=== PATIENT | female | born 1955 | race Caucasian/White ===

== ENCOUNTER 2016-11-14 13:35 | Inpatient (IN) | payer OTHER ==
--- NOTE | ~2016-11-14 | EKG ---
PATIENT: AYAN MAYER UNIT #: [id number] Ventricular Rate: 67 BPM Atrial Rate: 67 BPM P-R Interval: 170 ms QRS Duration: 86 ms Q-T Interval: 446 ms QTC Calculation(Bezet): 471 ms P [place]: 72 degrees Calculated R [place]: 59 degrees Calculated T [place]: 57 degrees Diagnosis Line: Normal sinus rhythm Diagnosis Line: Normal ECG Diagnosis Line: When compared with ECG of 15-NOV-2016 05:28, Diagnosis Line: (unconfirmed) Diagnosis Line: QT has shortened Diagnosis Line: Confirmed by JOVANNY MA MD ([id number]) on 11/15/2016 Diagnosis Line: 5:33:44 PM INTERPRETING MD: FRANCESCA YU
--- NOTE | ~2016-11-14 | DS ---
Unit #: [id number] #: [id number] Patient: AYAN MAYER [id number] [facility]. [place], [place] [address] [id number] I MR#: [id number] NAME: AYAN MAYER. ROOM: 557 Age: 61 Sex: F Admission Date: 11/14/2016 : 1955 Discharge Date: 11/16/2016 Attending Physician: Winston Perkins M.D. Primary Care Physician: Nancy Garcia A.P.R.N. DISCHARGE SUMMARY DISCHARGE DIAGNOSES 1. Acute inferior wall non ST elevation myocardial infarction. 2. Status post cardiac catheterization 11/15/[address] at [facility] that reveals the following results. a. Left main normal. b. Left anterior descending artery with 50% stenosis distal to the first septal sawsmith. First diagonal branch with 80% stenosis before the bifurcation. c. Circumflex artery shows 80% stenosis at the origin of the posterior marginal branch. d. Right coronary artery is a large caliber dominant vessel with 99.9% before the bifurcation of the posterior descending artery and posterior left ventricular branches. e. Injection fraction of 50% with moderate to severe hypokinesis of the inferior basal wall. There is 2+ mitral regurgitation into a dilated left atrium. f. Status post angioplasty with drug eluting stent to the distal right coronary artery. Post percutaneous coronary intervention, there was 50% stenosis of origin of the posterior descending artery branch that was caught in stent retirement. 3. Hypertension. 4. Cocaine abuse. 5. ETOH abuse. 6. Mitral regurgitation. DISCHARGE MEDICATIONS 1. Trazodone 50 mg q.h.s. p.r.n. 2. Aspirin 81 mg daily. 3. Brilinta 90 mg b.i.d. 4. Omeprazole 20 mg daily. 5. Potassium chloride 10 mEq daily. 6. Acyclovir 400 mg daily p.r.n. 7. Norvasc 10 mg daily. 8. Metoprolol tartrate 25 mg b.i.d. 9. Hydrochlorothiazide 25 mg daily. 10. Lipitor 80 mg q.h.s. 11. Lisinopril 20 mg q.h.s. 12. Cyclobenzaprine 10 mg b.i.d. p.r.n. 13. Levothyroxine 0.25 mg daily. 14. Nitroglycerin 0.4 mg sublingual q.5 minutes x3 p.r.n. chest pain. HOSPITAL COURSE This is a 61-year-old white female who presented to the emergency department for evaluation of chest pain. Please see details in the HPI. Unit #: [id number] #: [id number] Patient: AYAN MAYER She was ruled in for an acute myocardial infarction where her troponin peaked at 0.68. She had no acute electrocardiogram changes. Cardiac catheterization was recommended, for which the patient was agreeable. She was started on aspirin, Lovenox, and beta-sandi. KATE inhibitor was also started. Lipid profile showed good control of cholesterol levels but because of acute AL, the patient was started on high intensity statin with Lipitor 80 mg q.h.s. Cardiac catheterization findings showed the culprit vessel to be the distal right coronary artery, which was 99.9% occluded. She had moderate disease in the first diagonal branch of the LAD and the posterior marginal branch of the circumflex artery. She underwent successful angioplasty with drug-eluting stent placement using a 3.5 x 16 mm Synergy drug-eluting stent into the distal right coronary artery. There was 50% residual stenosis after the ostium of the PDA branch that was caught in stent retirement. There was an attempt to advance the wire through the struts of the stent but was unable to advance the wire across the stent struts. The attempt to dilate the PDA was aborted. The 80% stenosis to the origin of the posterior marginal branch of the circumflex artery and 80% stenosis of the diagonal branch of the LAD will be dilated at a later date. She was bolused with Brilinta, in addition to aspirin in the cleaner laboratory equipment. She will be started on a daily regimen, because the Brilinta for the patient is $2.00, which is affordable. The following day the patient's MB index was 8.4. She had no acute ischemic changes. She is ambulated without chest pain or shortness of breath. She complained of constipation but no other symptoms. She is stable for discharge today. ASSESSMENT VITAL SIGNS: Blood pressure 93/60, heart rate 68, temperature 97.6. CHEST: Clear to auscultation. HEART: S1 and S2. Regular rate and rhythm. No murmurs, rubs, or clicks. ABDOMEN: Soft, nontender. Bowel sounds are present. EXTREMITIES: Without leg edema. Right radial 4+ pulse. No hematoma or bruising. DIAGNOSTIC STUDIES LABORATORY STUDIES: Hemoglobin 12.2, hematocrit 35.6, platelet count 216, white count 5.0. Sodium 138, potassium 4.5, BUN 12, creatinine 0.6, glucose 91. MB index 8.4. CARDIOLOGY STUDIES: Resting electrocardiogram - normal sinus rhythm with a rate of 64 BPM with QTC prolongation 573 msec. DISCHARGE INSTRUCTIONS 1. The patient will be discharged home today. 2. Followup with Dr. Perkins in the office in two weeks. She would need a 2D echocardiogram to evaluate left ventricular systolic function and for valvular heart disease. 3. Cardiac catheterization showed moderate mitral regurgitation. 4. Repeat electrocardiogram in the office to evaluate QTC. QTC was prolonged on discharge EKG at 573 msec. 5. Norvasc has been discontinued. The patient will continue on beta-sandi KATE inhibitor statin, aspirin and Brilinta. Dictated by... John Murphy A.P.R.N. for Winston Perkins M.D. Unit #: [id number] #: [id number] Patient: AYAN MAYER JAYLEN/ts TD: 11/18/2016 08:44 JOB #: [id number] CC: [facility] [place] [facility] DISCHARGE SUMMARY X John Murphy APRN X DISCHARGE SUMMARY
--- NOTE | ~2016-11-14 | CR72 ---
[facility] A Service of [facility] RADIOLOGY TEXT RESULTS PATIENT: AYAN MAYER LOCATION: C5 557-01 : 56 UNIT #: [id number] AGE: [address]: Winston Perkins MD SEX: F ORDER DR: [id number] [facility] [address]. [place], [place] [address] [id number] MR#: [id number] Acc #: [id number] NAME: AYAN MAYER : 1955 SEX: F STUDY DATE/TIME: 11/14/2016 13:50 UNIT: ERIKA ROOM: STUDY DESCRIPTION: CR Chest Single View Portable Attending Physician: Gabriel Pierce M.D. Ordering Physician: Gabriel Pierce M.D. Primary Care Physician: Nancy Garcia A.P.R.N. MEDICAL IMAGING REPORT This report is preliminary unless electronic signature is present EXAM Chest, portable, 11/14/2016, 1350 hours. CLINICAL HISTORY 7-year-old complaining of midsternal chest pain for 2 days. History of uterine cancer. COMPARISON 12/28/2015 FINDINGS Portable upright chest demonstrates artifact which I believe is external to the patient in the supraclavicular regions, likely related to clothing. The cardiac, mediastinal, and hilar contours are normal. The lungs are clear and there are no effusions. IMPRESSION No acute cardiopulmonary findings. There is clothing artifact in the supraclavicular regions and in the neck. Dictated by... Nannette Rivers M.D. THIS IS AN ELECTRONICALLY VERIFIED REPORT Nannette Rivers M.D. at 11/15/2016 7:46 AM CHRISTOPHER/gerri TD: 11/14/2016 16:09 JOB #: [id number] MEDICAL IMAGING REPORT [facility] A Service [facility] RADIOLOGY TEXT RESULTS PATIENT: AYAN MAYER LOCATION: [facility] 557-01 : 57 UNIT #: [id number] AGE: [address]: Winston Perkins MD SEX: F ORDER DR: JOSE
--- NOTE | ~2016-11-14 | EKG ---
PATIENT: AYAN MAYER UNIT #: [id number] Ventricular Rate: 106 BPM Atrial Rate: 106 BPM P-R Interval: 162 ms QRS Duration: 90 ms Q-T Interval: 376 ms QTC Calculation(Bezet): 499 ms P [place]: 67 degrees Calculated R [place]: 65 degrees Calculated T [place]: 81 degrees Diagnosis Line: Sinus tachycardia Diagnosis Line: Nonspecific T wave abnormality Diagnosis Line: Abnormal ECG Diagnosis Line: When compared with ECG of 03-JUL-2014 21:24, Diagnosis Line: T wave inversion no longer evident in Inferior Diagnosis Line: leads Diagnosis Line: Nonspecific T wave abnormality now evident in Diagnosis Line: Anterolateral leads Diagnosis Line: Confirmed by JOVANNY MA MD ([id number]) on 11/15/2016 Diagnosis Line: 5:10:08 PM INTERPRETING MD: FRANCESCA YU
--- NOTE | ~2016-11-14 | EKG ---
PATIENT: AYAN MAYER UNIT #: [id number] Ventricular Rate: 97 BPM Atrial Rate: 97 BPM P-R Interval: 176 ms QRS Duration: 94 ms Q-T Interval: 376 ms QTC Calculation(Bezet): 477 ms P [place]: 67 degrees Calculated R [place]: 75 degrees Calculated T [place]: 107 degrees Diagnosis Line: Normal sinus rhythm Diagnosis Line: Nonspecific ST and T wave abnormality Diagnosis Line: Prolonged QT Diagnosis Line: Abnormal ECG Diagnosis Line: When compared with ECG of 14-NOV-2016 13:03, Diagnosis Line: (unconfirmed) Diagnosis Line: No significant change was found Diagnosis Line: Confirmed by JOVANNY MA MD ([id number]) on 11/15/2016 Diagnosis Line: 5:15:52 PM INTERPRETING MD: FRANCESCA YU
--- NOTE | ~2016-11-14 | EKG ---
PATIENT: AYAN MAYER UNIT #: [id number] Ventricular Rate: 64 BPM Atrial Rate: 64 BPM P-R Interval: 168 ms QRS Duration: 90 ms Q-T Interval: 556 ms QTC Calculation(Bezet): 573 ms P [place]: 58 degrees Calculated R [place]: 49 degrees Calculated T [place]: 73 degrees Diagnosis Line: Normal sinus rhythm Diagnosis Line: Prolonged QT Diagnosis Line: Abnormal ECG Diagnosis Line: When compared with ECG of 14-NOV-2016 18:20, Diagnosis Line: (unconfirmed) Diagnosis Line: Vent. rate has decreased BY 33 BPM Diagnosis Line: ST no longer depressed in Anterolateral leads Diagnosis Line: Nonspecific T wave abnormality, improved in Diagnosis Line: Anterolateral leads Diagnosis Line: QT has lengthened Diagnosis Line: Confirmed by JOVANNY MA MD ([id number]) on 11/15/2016 Diagnosis Line: 5:24:52 PM INTERPRETING MD: FRANCESCA YU
--- NOTE | ~2016-11-14 | EKG ---
PATIENT: AYAN MAYER UNIT #: [id number] Ventricular Rate: 63 BPM Atrial Rate: 63 BPM P-R Interval: 174 ms QRS Duration: 86 ms Q-T Interval: 460 ms QTC Calculation(Bezet): 470 ms P [place]: 64 degrees Calculated R [place]: 57 degrees Calculated T [place]: 30 degrees Diagnosis Line: Normal sinus rhythm Diagnosis Line: Normal ECG Diagnosis Line: When compared with ECG of 15-NOV-2016 14:20, Diagnosis Line: No significant change was found Diagnosis Line: Confirmed by JARRED NORTON MD ([id number]) on Diagnosis Line: 11/17/2016 10:37:52 PM INTERPRETING MD: ZACH
--- NOTE | ~2016-11-14 | HP ---
Unit #: [id number] #: [id number] Patient: AYAN MAYER [id number] [address] [place], [place] [address] [id number] I MR#: [id number] NAME: AYAN MAYER. ROOM: 557 Age: 61 Sex: F Admission Date: 11/14/2016 : 1955 Attending Physician: Winston Perkins M.D. Primary Care Physician: Nancy Garcia A.P.R.N. HISTORY AND PHYSICAL HISTORY OF PRESENT ILLNESS This is a 61-year-old white female, who presented to the emergency room with a complaint of left anterior sharp intermittent chest pain with radiation to her left arm and left scapula associated with shortness of breath. She woke up from sleep yesterday morning with chest pain. She had episodes all day yesterday that mostly occurred with exertion and was relieved with rest. She walked approximately two blocks with her and the chest pain was ongoing. 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 She has a history of cocaine use and used cocaine two days ago. Because of chest pain, she came to the emergency room for evaluation where she was found to have no troponin elevation or electrocardiogram changes to suggest an acute event. There was no relief of chest pain after nitroglycerin in the emergency room. She has had prior cardiac testing with exercise Cardiolite stress test in 2008 which was normal. She is known to have hypertension, remote history of nicotine abuse, and family history of premature coronary artery disease as risk factors for ischemic heart disease. She states she is reasonably active and has not had any chest pain until yesterday. PAST MEDICAL HISTORY 1. Exercise Cardiolite stress test, January 09, 2009, shows ejection fraction 82% with no ischemia. 2. A 2D echocardiogram, July 05, 2014, shows an ejection fraction of 60% with mild mitral regurgitation and mild tricuspid regurgitation. 3. Hypertension. 4. Hypothyroidism. 5. ETOH abuse. 6. Hepatitis C. 7. Vasovagal syncope. 8. Cocaine abuse. 9. Former smoker. PAST SURGICAL HISTORY Hysterectomy. SOCIAL HISTORY The patient is . 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 She quit smoking more than 10 years ago. Drinks on a daily basis, apparently heavily. Reports occasional cocaine use. FAMILY HISTORY Father had open heart surgery but from cancer in his 70s. ALLERGIES Unit #: [id number] #: [id number] Patient: AYAN MAYER No known drug allergies. MEDICATIONS Listed medications: 1. Amlodipine. 2. Levothyroxine. 3. Hydrochlorothiazide. 4. Potassium chloride. 5. Trazodone. 6. Flexeril. REVIEW OF SYSTEMS CONSTITUTIONAL: Negative for fever or chills. Reports no weight gain or weight loss. HEENT: No headache, hearing or visual changes, or difficulty with swallowing. No dizziness. CARDIOVASCULAR: Has chest pain described in the HPI. Denies palpitations. No paroxysmal nocturnal dyspnea or orthopnea. Denies syncope or near syncope. RESPIRATORY: Positive for dyspnea that accompanies chest pain. No cough or hemoptysis. GASTROINTESTINAL: Negative for nausea, vomiting, or abdominal pain discomfort. EXTREMITIES: Negative for lower extremity edema. PHYSICAL EXAMINATION VITAL SIGNS: Blood pressure 143/82, heart rate 98, temperature 98, BMI 25. GENERAL: This is a 61-year-old middle-aged white female who is in no acute respiratory distress. NEUROLOGIC: She is awake, alert, and oriented without focal weaknesses. NECK: Trachea is midline. No thyromegaly or lymphadenopathy. No jugular venous distention. HEART: S1, S2. Heart sounds are normal. No murmurs. No rubs. No clicks. Regular rate and rhythm. LUNGS: Clear to auscultation. ABDOMEN: Soft, nontender. Bowel sounds are present. EXTREMITIES: Without leg edema. SKIN: Warm and dry. DIAGNOSTIC STUDIES LABORATORY: Hemoglobin 13.8, hematocrit 40.2, platelet count 313,000, white count 7. Sodium 138, potassium 3.5, BUN 9, creatinine 0.7, glucose 105. Troponin less than 0.05. Urine drug screen positive for cocaine and TCA. IMAGING: Chest x-ray shows no active disease. CARDIOVASCULAR: EKG: Sinus tachycardia, rate of 106 beats per minute with nonspecific ST wave abnormality. IMPRESSION 1. New-onset exertional angina. 2. Hypertension, controlled. 3. History of vasovagal syncope. 4. Daily ETOH use. 5. Cocaine abuse. Unit #: [id number] #: [id number] Patient: AYAN MAYER PLAN 1. The patient has risk factors for ischemic heart disease that include hypertension, remote history of nicotine abuse, and family history of premature coronary artery disease. Because of exertional angina and risk factors, will recommend cardiac catheterization to evaluate coronary anatomy. This has been discussed with the patient and family and they are agreeable. 2. Will start the patient on nitrates and beta blockers. 3. Continue aspirin. 4. Lipid profile will be obtained. 5. Encouraged the patient to discontinue cocaine use. 6. Consider decreasing her alcohol consumption. Dictated by Kishore BaldwinPErin for Benita Scherer TD: 11/15/2016 16:06 JOB #: [id number] HISTORY AND PHYSICAL X John Murphy APRN X HISTORY AND PHYSICAL
[~2016-11-14 13:35] MED LIST: AMLODIPINE BESYL5 MG PO; B; CALCIUM + D 6001 TA1 PO; CYANOCOBALAM1000 MCG PO; KCL PO; LISINOPRIL PO; MOTRIN600 MG PO; NAPROSYN500 MG PO; PROBIOTIC1 EAC1 PO; SENNA8.6 M1 PO; ST. JOSEPH ASPI81 M2 PO; VITAMIN B650 M1 PO
[2016-11-14 14:24] LABS: BASOPHIL# 0.1 X10e3 (0-0.3); BASOPHIL% 0.8 % (0-2.5); DIFF IND NO; EOSINOPHIL# 0.2 X10e3 (0-0.7); EOSINOPHIL% 2.6 % (0.0-7.0); HEMATOCRIT 40.2 % (35.0-45.0); HEMOGLOBIN 13.8 gm/dL (12.0-16.0); LYMPHOCYTE# 2.1 X10e3 (1.0-3.5); LYMPHOCYTE% 30.3 % (17.0-45.0); MEAN CELL VOLUME 88.3 FL (83-96); MEAN CORPUSCULAR HEMOGLOBIN 30.3 PG (28-34); MEAN CORPUSCULAR HGB CONC 34.3 g/dL (30-36); MEAN PLATELET VOLUME 7.6 FL (6.5-11.5); MONOCYTE# 0.5 X10e3 (0-1.0); MONOCYTE% 7.2 % (3.0-12.0); NEUTROPHIL# 4.2 X10e3 (1.5-7.1); NEUTROPHIL% 59.1 % (40-75); PLATELET COUNT 313 X10e3 (140-420); RED BLOOD COUNT 4.55 X10e (3.90-5.30); RED CELL DISTRIBUTION WIDTH 12.7 % (11.0-15.5)
[2016-11-14 14:34] LABS: POC - CKMB 1.4 ng/mL (0.0-7.9); POC - TROPONIN <0.05 ng/mL (<=0.05)
[2016-11-14 14:54] LABS: ALBUMIN SERUM 4.7 g/dL (3.5-5.0); ALKALINE PHOSPHATASE 66 U/L (32-92); ALT (SGPT) 28 U/L (10-40); AST (SGOT) 29 U/L (10-42); BILIRUBIN,TOTAL 0.3 mg/dL (0.2-2.0); BLOOD UREA NITROGEN 9 mg/dL (9-23); BUN/CREATININE RATIO 12.85; CALCIUM SERUM 9.5 mg/dL (8.4-10.2); CARBON DIOXIDE 24 mmol/L (22-31); CHLORIDE 101 mmol/L (100-111); CREATININE SERUM 0.7 mg/dL (0.6-1.4); GLOM FILT RATE Estimated ABOVE60 mL/min (>60); GLUCOSE FASTING 105 mg/dL (70-110); POTASSIUM 3.5 mmol/L (3.5-5.1); PROTEIN TOTAL SERUM 8.7 g/dL (6.0-8.3); SODIUM 138 mmol/L (135-145)
[2016-11-14 14:56] LABS: BILIRUBIN, DIRECT <0.1 mg/dL (0.0-0.2); BILIRUBIN,INDIRECT 0.2 mg/dL (0.0-0.9)
[2016-11-14 16:17] LABS: POC - CKMB 1.3 ng/mL (0.0-7.9); POC - TROPONIN <0.05 ng/mL (<=0.05)
[2016-11-14 16:34] LABS: URINE SOURCE CLEAN CATCH
[2016-11-14 16:46] LABS: URINE APPEARANCE CLEAR; URINE BILIRUBIN NEG (NEG); URINE BLOOD NEG (NEG); URINE COLOR YELLOW; URINE GLUCOSE NEG (NEG); URINE KETONE NEG (NEG); URINE LEUKOCYTE ESTERASE NEG (NEG); URINE NITRATE NEG (NEG); URINE PROTEIN NEG (NEG); URINE SPECIFIC GRAVITY 1.016 (1.003-1.035); URINE UROBILINOGEN 0.2 MG/DL (NEG)
[2016-11-14 16:53] LABS: CULTURE INDICATED? NO
[2016-11-14 17:17] LABS: AMPHETAMINE NEG (NEG); BARBITURATES NEG (NEG); BENZODIAZEPINES NEG (NEG); COCAINE POS (NEG); MARIJUANA NEG (NEG); OPIATES NEG (NEG); TRICYCLIC ANTIDEPRESSANTS POS (NEG); U METHADONE NEG (NEG)
[2016-11-14] MEDS ORDERED: HYDROCHLOROTHIA25 MG PO (18:46)
[2016-11-14] MEDS ORDERED: NORVASC10 MG PO (18:46)
[2016-11-14] MEDS ORDERED: SYNTHROID25 MCG PO (18:46)
[2016-11-14] MEDS ORDERED: FLEXERIL10 MG PO (18:47)
[2016-11-14] MEDS ORDERED: TRAZODONE PO (18:47)
[2016-11-14] MEDS ORDERED: ACYCLOVIR400 MG PO (18:47)
[2016-11-14] MEDS ORDERED: OMEPRAZOLE20 M2 PO (18:48)
[2016-11-14] MEDS ORDERED: KLOR-CON PO (18:48)
[2016-11-14 22:15] LABS: %MB 11.1 % (0.0-4.0); MB 8.3 ng/ml
[2016-11-15 03:35] LABS: BASOPHIL% 0.6 % (0-2.5); EOSINOPHIL# 0.2 X10e3 (0-0.7); EOSINOPHIL% 2.7 % (0.0-7.0); HEMATOCRIT 35.9 % (35.0-45.0); HEMOGLOBIN 12.4 gm/dL (12.0-16.0); LYMPHOCYTE# 1.7 X10e3 (1.0-3.5); MEAN CELL VOLUME 87.6 FL (83-96); MEAN CORPUSCULAR HEMOGLOBIN 30.3 PG (28-34); MEAN CORPUSCULAR HGB CONC 34.6 g/dL (30-36); MEAN PLATELET VOLUME 7.9 FL (6.5-11.5); MONOCYTE# 0.7 X10e3 (0-1.0); MONOCYTE% 10.2 % (3.0-12.0); NEUTROPHIL# 4.1 X10e3 (1.5-7.1); NEUTROPHIL% 61.5 % (40-75); PLATELET COUNT 285 X10e3 (140-420); RED CELL DISTRIBUTION WIDTH 12.6 % (11.0-15.5); WHITE BLOOD COUNT 6.6 X10e3 (4.0-10.5)
[2016-11-15 03:39] LABS: DIFF IND NO
[2016-11-15 03:50] LABS: PARTIAL THROMBOPLASTIN TIME 28.6 SECONDS (23.5-31.3); PROTHROMBIN TIME (PATIENT) 10.4 SECONDS (9.6-11.5)
[2016-11-15 04:02] LABS: BLOOD UREA NITROGEN 8 mg/dL (9-23); BUN/CREATININE RATIO 13.33; CALCIUM SERUM 8.8 mg/dL (8.4-10.2); CARBON DIOXIDE 25 mmol/L (22-31); CHLORIDE 100 mmol/L (100-111); CREATININE SERUM 0.6 mg/dL (0.6-1.4); GLOM FILT RATE Estimated ABOVE60 mL/min (>60); GLUCOSE FASTING 122 mg/dL (70-110); MAGNESIUM 1.5 mg/dL (1.6-3.0); POTASSIUM 3.6 mmol/L (3.5-5.1); SODIUM 132 mmol/L (135-145)
[2016-11-15 04:39] LABS: %MB 13.5 % (0.0-4.0); CHOLESTEROL 143 mg/dL (0-200); HDL CHOLESTEROL 68 mg/dL (35-95); LDL CHOLESTEROL 44 mg/dL (-130); LDL/HDL RATIO 1 RATIO (0-4); MB 13.8 ng/ml; TRIGLYCERIDES 156 mg/dL (10-160)
[2016-11-15 18:00] LABS: ANGIO %MB 10.9 % (0.0-4.0); ANGIO MB 10.8 ng/ml
[2016-11-16 02:24] LABS: ANGIO %MB 8.4 % (0.0-4.0); ANGIO MB 6.2 ng/ml
[2016-11-16 06:22] LABS: HEMATOCRIT 35.6 % (35.0-45.0); HEMOGLOBIN 12.2 gm/dL (12.0-16.0); MEAN CELL VOLUME 88.2 FL (83-96); MEAN CORPUSCULAR HEMOGLOBIN 30.3 PG (28-34); MEAN CORPUSCULAR HGB CONC 34.3 g/dL (30-36); MEAN PLATELET VOLUME 8.2 FL (6.5-11.5); RED BLOOD COUNT 4.04 X10e (3.90-5.30); RED CELL DISTRIBUTION WIDTH 12.6 % (11.0-15.5)
[2016-11-16 07:04] LABS: BLOOD UREA NITROGEN 12 mg/dL (9-23); CALCIUM SERUM 8.9 mg/dL (8.4-10.2); CARBON DIOXIDE 27 mmol/L (22-31); CHLORIDE 104 mmol/L (100-111); CHOLESTEROL 110 mg/dL (0-200); CREATININE SERUM 0.6 mg/dL (0.6-1.4); GLOM FILT RATE Estimated ABOVE60 mL/min (>60); GLUCOSE FASTING 91 mg/dL (70-110); HDL CHOLESTEROL 58 mg/dL (35-95); LDL CHOLESTEROL 38 mg/dL (-130); LDL/HDL RATIO 1 RATIO (0-4); MAGNESIUM 1.9 mg/dL (1.6-3.0); POTASSIUM 4.5 mmol/L (3.5-5.1); SODIUM 139 mmol/L (135-145); TRIGLYCERIDES 68 mg/dL (10-160)
[2016-11-16] MEDS ORDERED: CHEWABLE ASPIRI81 MG PO (10:21)
[2016-11-16] MEDS ORDERED: BRILINTA90 MG PO (10:21)
[2016-11-16] MEDS ORDERED: METOPROLOL TAR25 MG PO (10:22)
[2016-11-16] MEDS ORDERED: LIPITOR80 MG PO (10:23)
[2016-11-16] MEDS ORDERED: ZESTRIL10 M1 PO (10:23)
[2016-11-16] MEDS ORDERED: HYDROCHLOROTHIA25 MG PO (10:24)
[2016-11-16] MEDS ORDERED: NITROSTAT0.4 MG SL (10:25)
== END 2016-11-16 14:08 | disposition home or self-care (01) | DRG 247 ==
LOC: CED 13:35 → CEDOF 16:15 → C5B 17:38
PROVIDERS: Emergency Medicine; Internal Medicine Cardiovascular Disease; Nurse Practitioner
PROC: 4A023N7 Measurement of Cardiac Sampling and Pressure, Left Heart, Percutaneous Approach (ICD-10-PCS; principal; 2016-11-15)
PROC: 027034Z Dilation of Coronary Artery, One Artery with Drug-eluting Intraluminal Device, Percutaneous Approach (ICD-10-PCS; 2016-11-15)
PROC: B211YZZ Fluoroscopy of Multiple Coronary Arteries using Other Contrast (ICD-10-PCS; 2016-11-15)
PROC: B215YZZ Fluoroscopy of Left Heart using Other Contrast (ICD-10-PCS; 2016-11-15)
DX: I21.4 Non-ST elevation (NSTEMI) myocardial infarction (principal); I08.1 Rheumatic disorders of both mitral and tricuspid valves; I10 Essential (primary) hypertension; I25.119 Atherosclerotic heart disease of native coronary artery with unspecified angina pectoris; E03.9 Hypothyroidism, unspecified; F10.10 Alcohol abuse, uncomplicated; B19.20 Unspecified viral hepatitis C without hepatic coma; F14.10 Cocaine abuse, uncomplicated; Z87.891 Personal history of nicotine dependence
CPT/HCPCS: 36415; 71010; 80048; 80061; 80076; 80307; 81003; 82550; 82553; 83735; 84443; 84484; 85025; 85027; 85347; 85610; 85730; 93005; 96361; 96374; 96375; 99285; C1725; C1769; C1874; C1887; C1894; J1644; J1650; J2250; J2270; J2405; J3010; J3475; J3480